=== PATIENT | female | born 1960 | race Hispanic/Latino ===

== ENCOUNTER 2019-02-16 08:35 | Emergency (ER) | payer OTHER ==
[2019-02-16 09:26] LABS: Basophils % 0.9 % (0-1.3); Hematocrit 39.7 % (36.0-45.0); Lymphocytes % 38.6 % (15.3-44.8); MPV 8.1 fL (7.6-11.3); RBC Red Blood Cell Count 4.26 M/uL (3.86-4.86)
[2019-02-16 09:48] LABS: Albumin 3.7 g/dL (3.4-5.0); Bilirubin Direct 0.1 mg/dL (0-0.2); Bilirubin Total 0.4 mg/dL (0.2-1.0); Potassium 3.8 mmol/L (3.5-5.1); Protein, Total 7.4 g/dL (6.4-8.2)
[2019-02-16 10:42] LABS: Urine Blood 2+ (NEG); Urine Glucose NEGATIVE (NEG); Urine Protein NEGATIVE (NEG); Urine pH 5.5 (5.0-7.0)
--- NOTE | 2019-02-16 10:46 | RAD REPORT ---
EXAM DESCRIPTION: CT - Stone Protocol - 02/16/2019 10:30 am CLINICAL HISTORY: Abdominal pain. Dysuria COMPARISON: 2016 TECHNIQUE: Computed axial tomography of the abdomen pelvis was obtained without oral or IV contrast. Lack of IV and oral contrast limits evaluation of solid organs, bowel, and vessels. Coronal reformat grecia images were obtained and reviewed. All CT scans are performed using dose optimization technique as appropriate and may include automated exposure control or mA/KV adjustment according to patient size. FINDINGS: 1 millimeter right renal calculus. No hydronephrosis. A left renal calculus is not seen. An ureteral calculus is not noted. A bladder calculus is not present. Fatty liver. The patient's known in a low-density mass within the dome of the liver is not as well se en on the current exam so the exact size is difficult to determine. Nonemergent ultrasound would be h elpful for further evaluation Spleen, pancreas and adrenals appear grossly normal There is no evidence of diverticulitis. The appendix appears normal 2 centimeter right ovarian cyst/paraovarian cyst without significant change since the prior exam IMPRESSION: 1 millimeter nonobstructing right renal calculus
--- NOTE | 2019-02-16 11:20 | ER ---
Nurse's Notes [facility] Name: Radha Guzman Age: 58 yrs Sex: Female : 1960 Arrival Date: 02/16/2019 Time: 08:39 Bed 20 Private MD: Sanjeev Luther Diagnosis: Dysuria Presentation: 02/16 08:44 Presenting complaint: Low back pain, suprapubic pain, and burning with urination x 2 hb days. Denies fever. Transition of care: patient was not received from another setting of care. Onset of symptoms was February 15, 2019. Risk Assessment: Do you want to hurt yourself or someone else? Patient reports no desire to harm self or others. Initial Sepsis Screen: Does the patient meet any 2 criteria? No. Patient's initial sepsis screen is negative. Care prior to arrival: None. 08:44 Method Of Arrival: Ambulatory hb 08:44 Acuity: RICKY 3 hb 10:00 Initial Sepsis Screen: Does the patient have a suspected source of infection? No. ca1 Patient's initial sepsis screen is negative. Triage Assessment: 08:46 General: Appears in no apparent distress. Behavior is calm, cooperative. Pain: Pain hb currently is 8 out of 10 on a pain scale. EENT: No signs and/or symptoms were reported regarding the EENT system. Neuro: Level of Consciousness is awake, alert, obeys commands, Oriented to person, place, time, situation. Cardiovascular: Capillary refill < 3 seconds Patient's skin is warm and dry. Respiratory: Airway is patent Respiratory effort is even, unlabored, Respiratory pattern is regular, symmetrical. GI: No signs and/or symptoms were reported involving the gastrointestinal system. : Reports burning with urination, suprapubic pain. Derm: Skin is pink, warm \T\ dry. Musculoskeletal: Circulation, motion, and sensation intact. Historical: - Allergies: 08:46 No Known Allergies; hb - Home Meds: 08:46 levothyroxine oral [Active]; Klonopin Oral [Active]; montelukast oral oral [Active]; hb - PMHx: 08:46 Depression; GERD; Hypothyroidism; hb - PSHx: 08:46 ; hb - Immunization history:: Adult Immunizations up to date. - Social history:: Smoking status: Patient/guardian denies using tobacco. - Ebola Screening: : No symptoms or risks identified at this time. Screenin:02 Abuse screen: Denies threats or abuse. Denies injuries from another. Nutritional ca1 screening: No deficits noted. Tuberculosis screening: No symptoms or risk factors identified. Fall Risk Assessment: 10:02 General: Appears in no apparent distress. comfortable, Behavior is calm, cooperative, ca1 appropriate for age. Pain: Complains of pain in low back area Pain currently is 8 out of 10 on a pain scale. Pain began 2-3 days ago. Neuro: Level of Consciousness is awake, alert, obeys commands, Oriented to person, place, time, situation. Cardiovascular: Heart tones S1 S2 present Capillary refill < 3 seconds Patient's skin is warm and dry. Respiratory: Airway is patent Respiratory effort is even, unlabored, Respiratory pattern is regular, symmetrical, Breath sounds are clear bilaterally. GI: Abdomen is round non-distended, Bowel sounds present X 4 quads. Abd is soft X 4 quads Abdomen is tender to palpation in suprapubic area. : No deficits noted. No signs and/or symptoms were reported regarding the genitourinary system. EENT: No deficits noted. No signs and/or symptoms were reported regarding the EENT system. Derm: Skin is intact, is healthy with good turgor, Skin is pink, warm \T\ dry. Musculoskeletal: Circulation, motion, and sensation intact. Capillary refill < 3 seconds, Range of motion: intact in all extremities. 11:30 Reassessment: Patient appears in no apparent distress at this time. Patient and/or ca1 family updated on plan of care and expected duration. Pain level reassessed. Patient is alert, oriented x 3, equal unlabored respirations, skin warm/dry/pink. Vital Signs: 08:46 BP 152 / 96; Pulse 63; Resp 16; Temp 97.3; Pulse Ox 100% on R/A; Weight 74.39 kg; hb Height 5 ft. 4 in. (162.56 cm); Pain 8/10; 10:22 BP 123 / 77; Pulse 61; Resp 17 S; Pulse Ox 98% on R/A; ca1 11:30 BP 122 / 90; Pulse 64; Resp 17 S; Pulse Ox 100% on R/A; ca1 08:46 Body Mass Index 28.15 (74.39 kg, 162.56 cm) hb ED Course: 08:39 Patient arrived in ED. mr 08:40 Sanjeev Luther MD is Private Physician. mr 08:42 Demond Mcknight PA is PHCP. [facility] 08:42 Rehan Whitaker MD is Attending Physician. [facility] 08:43 Sofia Roth, RN is Primary Nurse. hb 08:44 Triage completed. hb 08:46 Arm band placed on. hb 09:30 Inserted saline lock: 20 gauge in right antecubital area, using aseptic technique. ca1 ,using aseptic technique. by BRAEDEN Black Blood collected. 09:30 Initial lab(s) drawn, by ED staff, sent to lab. ca1 10:02 Patient has correct armband on for positive identification. Placed in gown. Bed in low ca1 position. Call light in reach. Side rails up X 1. Pulse ox on. NIBP on. Warm blanket given. 10:02 No provider procedures requiring assistance completed. ca1 11:19 Sanjeev Luther MD is Referral Physician. [facility] 12:04 IV discontinued, intact, bleeding controlled, No redness/swelling at site. Pressure ca1 dressing applied. Administered Medications: No medications were administered Outcome: 11:19 Discharge ordered by MD. [facility] 12:04 Discharged to home ambulatory, with significant other. ca1 12:04 Condition: stable 12:04 Discharge instructions given to patient, Instructed on discharge instructions, follow up and referral plans. no drinking with medication, no driving heavy equipment, medication usage, Demonstrated understanding of instructions, follow-up care, medications, Prescriptions given X 2. 12:05 Patient left the ED. ca1 Signatures: Demond Mcknight PA PA [facility] Graciela Jefferson mr Sofia Roth, RN RN Shy Mattson RN RN ca1
--- NOTE | 2019-02-16 11:20 | EDPHYS ---
Physician Documentation [facility] Name: Radha Guzman Age: 58 yrs Sex: Female : 1960 Arrival Date: 02/16/2019 Time: 08:39 Bed 20 Private MD: Sanjeev Luther ED Physician Rehan Whitaker HPI: 02/16 09:05 This 58 yrs old Female presents to ER via Ambulatory with complaints of Back jmm Pain. 09:05 The patient presents with pain that is acute. Onset: The symptoms/episode jmm began/occurred gradually, 1 day(s) ago. Associated signs and symptoms: Pertinent negatives: abdominal pain, fever, vomiting. Modifying factors: The patient symptoms are alleviated by nothing, the patient symptoms are aggravated by nothing. The patient has experienced similar episodes in the past. This is a 58 year old female with a history of hypothyroidism that presents to the ED with complaints of bilateral lower back pain which radiates to the pelvis bilaterally. Denies fever or vomiting. Admits to dysuria and increased frequency. . Historical: - Allergies: 08:46 No Known Allergies; hb - Home Meds: 08:46 levothyroxine oral [Active]; Klonopin Oral [Active]; montelukast oral oral [Active]; hb - PMHx: 08:46 Depression; GERD; Hypothyroidism; hb - PSHx: 08:46 ; hb - Immunization history:: Adult Immunizations up to date. - Social history:: Smoking status: Patient/guardian denies using tobacco. - Ebola Screening: : No symptoms or risks identified at this time. ROS: 09:05 Constitutional: Negative for fever, chills, and weight loss, Cardiovascular: Negative jmm for chest pain, palpitations, and edema, Respiratory: Negative for shortness of breath, cough, wheezing, and pleuritic chest pain. 09:05 : Positive for urinary symptoms. 09:05 All other systems are negative. Exam: 09:05 Constitutional: This is a well developed, well nourished patient who is awake, alert, jmm and in no acute distress. Head/Face: atraumatic. Eyes: EOMI, no conjunctival erythema appreciated ENT: Moist Mucus Membranes Neck: Trachea midline, Supple Chest/axilla: Normal chest wall appearance and motion. Cardiovascular: Regular rate and rhythm. No edema appreciated Respiratory: Normal respirations, no respiratory distress appreciated Abdomen/GI: Non distended, soft Back: Normal ROM MS/ Extremity: Moves all extremities, no obvious deformities appreciated, no edema noted to the lower extremities 09:05 Abdomen/GI: Inspection: abdomen appears normal, Palpation: abdomen is soft and non-tender, in all quadrants. 09:05 Neuro: Orientation: is normal, Mentation: is normal, Memory: is normal. 09:05 Psych: Behavior/mood is pleasant, cooperative. Vital Signs: 08:46 BP 152 / 96; Pulse 63; Resp 16; Temp 97.3; Pulse Ox 100% on R/A; Weight 74.39 kg; hb Height 5 ft. 4 in. (162.56 cm); Pain 8/10; 10:22 BP 123 / 77; Pulse 61; Resp 17 S; Pulse Ox 98% on R/A; ca1 11:30 BP 122 / 90; Pulse 64; Resp 17 S; Pulse Ox 100% on R/A; ca1 08:46 Body Mass Index 28.15 (74.39 kg, 162.56 cm) hb MDM: 09:02 Patient medically screened. [facility] 11:17 Data reviewed: vital signs, nurses notes. Counseling: I had a detailed discussion with [place] the patient and/or guardian regarding: the historical points, exam findings, and any diagnostic results supporting the discharge/admit diagnosis, lab results, radiology results, the need for outpatient follow up, to return to the emergency department if symptoms worsen or persist or if there are any questions or concerns that arise at home. ED course: Patient is alert and non toxic in appearance in the ED. CT negative for acute findings. Labs WNL. Patient will be treated for dysuria. Advised to follow up with pcp and otherwise given strict return precautions. Patient understood and agrees with the plan of care. . 02/16 09:03 Order name: Basic Metabolic Panel [facility] 02/16 09:03 Order name: CBC with Diff [facility] 02/16 09:03 Order name: Creatinine for Radiology [facility] 02/16 09:03 Order name: Hepatic Function [facility] 02/16 09:03 Order name: Lipase [facility] 02/16 09:03 Order name: Urine Culture [facility] 02/16 09:28 Order name: Urine Dipstick--Ancillary (enter results) 02/16 09:29 Order name: CBC with Automated Diff; Complete Time: 09:48 [facility] 02/16 09:46 Order name: Creatinine (Radiology Only); Complete Time: 09:48 [facility] 02/16 09:48 Order name: Basic Metabolic Panel; Complete Time: 10:02 [facility] 02/16 09:48 Order name: Liver (Hepatic) Function; Complete Time: 10:02 [facility] 02/16 09:48 Order name: Lipase; Complete Time: 10:02 [facility] 02/16 10:03 Order name: CT Stone Protocol [facility] 02/16 10:43 Order name: Urine Dipstick-Ancillary; Complete Time: 10:48 [facility] 02/16 09:03 Order name: IV Saline Lock; Complete Time: 09:23 [facility] 02/16 09:03 Order name: Labs collected and sent; Complete Time: 09:23 [facility] 02/16 09:03 Order name: Urine Dipstick-Ancillary (obtain specimen); Complete Time: 09:23 [facility] 02/16 11:12 Order name: CT; Complete Time: 11:16 EDSD Administered Medications: No medications were administered Disposition: 17:26 Co-signature as Attending Physician, Rehan Whitaker MD. ma2 Disposition: 02/16/19 11:19 Discharged to Home. Impression: Dysuria. - Condition is Stable. - Discharge Instructions: Dysuria. - Prescriptions for Cephalexin 500 mg Oral Capsule - take 1 capsule by ORAL route every 12 hours for 10 days; 20 capsule. Ultracet 37.5- 325 mg Oral Tablet - take 1 tablet by ORAL route every 6 hours - for up to 5 days; do not exceed 8 tablets per day.; 12 tablet. - Medication Reconciliation Form, Thank You Letter, Antibiotic Education, Prescription Opioid Use form. - Follow up: Sanjeev Luther MD; When: 2 - 3 days; Reason: Recheck today's complaints, Continuance of care, Re-evaluation by your physician. Signatures: Dispatcher [employer] [facility] Demond Mcknight PA PA jmm Baxter, Heather, RN RN hb Alzahri, Mohammad, MD MD ma2 Shy Mattson RN RN ca1 Corrections: (The following items were deleted from the chart) 12:05 11:19 02/16/2019 11:19 Discharged to Home. Impression: Dysuria. Condition is Stable. ca1 Forms are Medication Reconciliation Form, Thank You Letter, Antibiotic Education, Prescription Opioid Use. Follow up: Sanjeev Luther; When: 2 - 3 days; Reason: Recheck today's complaints, Continuance of care, Re-evaluation by your physician. daniel
[2019-02-16 12:14] VITALS: TEMP 97.3
[2019-02-16 12:18] VITALS: BP 122/90; O2SAT 100
== END 2019-02-16 12:05 | disposition home or self-care (01) ==
LOC: ER 08:35
DX: R30.0 Dysuria (principal); E03.9 Hypothyroidism, unspecified; F32.9 Major depressive disorder, single episode, unspecified
CPT/HCPCS: 36415; 74176; 76377; 80048; 80076; 81003; 83690; 85025; 87086; 87088; 99284

== ENCOUNTER 2019-05-21 09:11 | Emergency (ER) | payer OTHER ==
[2019-05-21] MEDS ORDERED: ONDANSETRON 4 MG (ODT) TAB ONE (09:53)
--- NOTE | 2019-05-21 10:31 | ER ---
Nurse's Notes [facility] Name: Radha Guzmna Age: 59 yrs Sex: Female : 1960 Arrival Date: 05/21/2019 Time: 09:18 Bed 6 Private MD: Diagnosis: Allergic rhinitis, unspecified Presentation: 05/20 09:44 Chief complaint: Patient states: headache, productive cough, nausea, urinary frequency sv x 1 week, seasonal allergies x 3 weeks. Coronavirus screen: The patient has NOT traveled to a country currently being monitored by the [facility] within the last 14 days. Proceed with normal triage procedures. The patient has NOT had contact with any known and/or suspected case of coronavirus. Proceed with normal triage procedures. Ebola Screen: Patient negative for fever greater than or equal to 101.5 degrees Fahrenheit, and additional compatible Ebola Virus Disease symptoms Patient denies exposure to infectious person. Patient denies travel to an Ebola-affected area in the 21 days before illness onset. No symptoms or risks identified at this time. Initial Sepsis Screen: Does the patient meet any 2 criteria? No. Patient's initial sepsis screen is negative. Does the patient have a suspected source of infection? Yes: Productive cough/pneumonia. Risk Assessment: Do you want to hurt yourself or someone else? Patient reports no desire to harm self or others. 09:44 Method Of Arrival: Ambulatory sv 09:44 Acuity: RICKY 4 sv Triage Assessment: 09:45 General: Appears in no apparent distress. comfortable, well developed, Behavior is sv calm, cooperative, appropriate for age. Pain: Complains of pain in face. Neuro: Level of Consciousness is awake, alert, obeys commands, Oriented to person, place, time, situation, Moves all extremities. Full function Gait is steady, Reports headache frontal area. Respiratory: Airway is patent Respiratory effort is even, unlabored, Respiratory pattern is regular, symmetrical. GI: Abdomen is flat, non-distended, Abd is soft and non tender X 4 quads. Reports nausea. : Reports urinary frequency. Derm: Skin is pink, warm \T\ dry. Musculoskeletal: Range of motion: intact in all extremities. Historical: - Allergies: 09:46 No Known Allergies; sv - PMHx: 09:46 Depression; GERD; Hypothyroidism; sv - PSHx: 09:46 ; sv - Immunization history:: Adult Immunizations up to date. - Social history:: Smoking status: Patient denies any tobacco usage or history of. Screenin:59 Abuse screen: Denies threats or abuse. Denies injuries from another. Nutritional jl7 screening: No deficits noted. Tuberculosis screening: No symptoms or risk factors identified. Fall Risk None identified. Assessment: 11:00 Reassessment: Patient appears in no apparent distress at this time. No changes from sv previously documented assessment. Patient and/or family updated on plan of care and expected duration. Pain level reassessed. Patient is alert, oriented x 3, equal unlabored respirations, skin warm/dry/pink. Vital Signs: 09:44 BP 169 / 97; Pulse 69; Resp 16; Temp 98.3; Pulse Ox 99% ; Weight 67.13 kg; Height 5 ft. sv 5 in. (165.10 cm); 10:56 BP 118 / 90; Pulse 62; Resp 16; Pulse Ox 99% ; sv 09:44 Body Mass Index 24.63 (67.13 kg, 165.10 cm) sv ED Course: 09:18 Patient arrived in ED. mr 09:39 Romina Iverson, SADIA [facility]. kb 09:39 Octaviano Sparks MD is Attending Physician. kb 09:40 Lisha Mosher RN is Primary Nurse. sv 09:45 Triage completed. sv 09:46 Nurse Practitioner and/or Physician Customer Service Manager to see patient. sv 09:46 Arm band placed on Patient placed in an exam room, on a stretcher. sv 09:51 Strep Sent. sv 10:00 Patient has correct armband on for positive identification. Bed in low position. Call jl7 light in reach. Side rails up X 1. 11:00 No provider procedures requiring assistance completed. Patient did not have IV access jl7 during this emergency room visit. Administered Medications: 09:51 Drug: Zofran (Ondansetron) 4 mg Route: PO; sv 10:59 Follow up: Response: No adverse reaction; Nausea is decreased jl7 Outcome: 10:30 Discharge ordered by . kb 11:00 Discharged to home ambulatory. jl7 11:00 Condition: stable 11:00 Discharge instructions given to patient, family, Instructed on discharge instructions, follow up and referral plans. medication usage, Demonstrated understanding of instructions, follow-up care, medications, Prescriptions given X 1. 11:00 Patient left the ED. jl7 Signatures: Romina Iverson, SADIA BEARD-Lisha Cardenas, RN BRAEDEN Jefferson Graciela Enma Young RN RN jl7
--- NOTE | 2019-05-21 10:32 | EDPHYS ---
Physician Documentation [facility] Name: Radha Guzman Age: 59 yrs Sex: Female : 1960 Arrival Date: 05/21/2019 Time: 09:18 Bed 6 Private MD: ED Physician Octaviano Sparks HPI: 05/20 09:50 This 59 yrs old Female presents to ER via Ambulatory with complaints of kb Nausea, Allergy Symptoms. 09:50 The patient or guardian reports cough, that is intermittent, described as mild, with no kb sputum. Onset: The symptoms/episode began/occurred 3 week(s) ago. Severity of symptoms: At their worst the symptoms were mild, in the emergency department the symptoms are unchanged. Modifying factors: The symptoms are alleviated by nothing, the symptoms are aggravated by nothing. Associated signs and symptoms: Pertinent positives: nausea, rhinorrhea, sore throat, Pertinent negatives: chest pain, diarrhea, ear ache, fever, vomiting. The patient has not experienced similar symptoms in the past. The patient has not recently seen a physician. Pt reports "bad allergies for 3 weeks." States recently she developed a scratchy throat and slight cough. Reports headache and nausea for one week. Denies fever. Requests antibiotics for her throat. Educated that we will test for strep and treat appropriately. Historical: - Allergies: 09:46 No Known Allergies; sv - PMHx: 09:46 Depression; GERD; Hypothyroidism; sv - PSHx: 09:46 ; sv - Immunization history:: Adult Immunizations up to date. - Social history:: Smoking status: Patient denies any tobacco usage or history of. ROS: 09:49 Constitutional: Negative for fever, chills, and weight loss, Neck: Negative for injury, kb pain, and swelling, Cardiovascular: Negative for chest pain, palpitations, and edema, Back: Negative for injury and pain, : Negative for injury, bleeding, discharge, and swelling, MS/Extremity: Negative for injury and deformity, Skin: Negative for injury, rash, and discoloration. 09:49 ENT: Positive for rhinorrhea, sinus congestion, sore throat. 09:49 Respiratory: Positive for cough, Negative for dyspnea on exertion, hemoptysis, orthopnea, pleurisy, shortness of breath, sputum production, wheezing. 09:49 Abdomen/GI: Positive for nausea, Negative for abdominal pain, vomiting, diarrhea. 09:49 Neuro: Positive for headache, Negative for altered mental status, dizziness, gait disturbance, hearing loss, loss of consciousness, numbness, seizure activity, speech changes, syncope, near syncope, tingling, tinnitus, tremor, visual changes, weakness. Exam: 09:49 Constitutional: This is a well developed, well nourished patient who is awake, alert, kb and in no acute distress. Head/Face: Normocephalic, atraumatic. Neck: Trachea midline, no thyromegaly or masses palpated, and no cervical lymphadenopathy. Supple, full range of motion without nuchal rigidity, or vertebral point tenderness. No Meningismus. Chest/axilla: Normal chest wall appearance and motion. Nontender with no deformity. No lesions are appreciated. Cardiovascular: Regular rate and rhythm with a normal S1 and S2. No gallops, murmurs, or rubs. Normal PMI, no JVD. No pulse deficits. Respiratory: Lungs have equal breath sounds bilaterally, clear to auscultation and percussion. No rales, rhonchi or wheezes noted. No increased work of breathing, no retractions or nasal flaring. Abdomen/GI: Soft, non-tender, with normal bowel sounds. No distension or tympany. No guarding or rebound. No evidence of tenderness throughout. Skin: Warm, dry with normal turgor. Normal color with no rashes, no lesions, and no evidence of cellulitis. MS/ Extremity: Pulses equal, no cyanosis. Neurovascular intact. Full, normal range of motion. Neuro: Awake and alert, GCS 15, oriented to person, place, time, and situation. Cranial nerves II-XII grossly intact. Motor strength 5/5 in all extremities. Sensory grossly intact. Cerebellar exam normal. Normal gait. 09:49 ENT: Nose: is normal, Mouth: is normal, Posterior pharynx: Airway: normal, no evidence of obstruction, swelling, is not appreciated, erythema, that is mild. Vital Signs: 09:44 BP 169 / 97; Pulse 69; Resp 16; Temp 98.3; Pulse Ox 99% ; Weight 67.13 kg; Height 5 ft. sv 5 in. (165.10 cm); 10:56 BP 118 / 90; Pulse 62; Resp 16; Pulse Ox 99% ; sv 09:44 Body Mass Index 24.63 (67.13 kg, 165.10 cm) sv MDM: 09:39 Patient medically screened. kb 09:50 Data reviewed: vital signs, nurses notes. Data interpreted: Pulse oximetry: on room air kb is 99 %. Interpretation: normal. 10:30 Counseling: I had a detailed discussion with the patient and/or guardian regarding: the kb historical points, exam findings, and any diagnostic results supporting the discharge/admit diagnosis, lab results, the need for outpatient follow up, a family practitioner, to return to the emergency department if symptoms worsen or persist or if there are any questions or concerns that arise at home. 05/20 09:46 Order name: Strep; Complete Time: 10:29 sv 05/20 10:22 Order name: Throat Culture EDUT Administered Medications: 09:51 Drug: Zofran (Ondansetron) 4 mg Route: PO; sv 10:59 Follow up: Response: No adverse reaction; Nausea is decreased alla7 Disposition: 18:24 Co-signature as Attending Physician, Octaviano Sparks MD Signature for administrative ps1 purposes. Did not see or evaluate patient. . Disposition: 05/21/19 10:30 Discharged to Home. Impression: Allergic rhinitis, unspecified. - Condition is Stable. - Discharge Instructions: Cough, Adult, [id number]-[id number], Sore Throat, [id number], Allergies, [id number]. - Prescriptions for Zofran 4 mg Oral Tablet - take 1 tablet by ORAL route every 6 hours As needed; 20 tablet. - Medication Reconciliation Form, Thank You Letter, Antibiotic Education, Prescription Opioid Use form. - Follow up: Emergency Department; When: As needed; Reason: Worsening of condition. Follow up: Private Physician; When: 2 - 3 days; Reason: Recheck today's complaints, Continuance of care, Re-evaluation by your physician. Signatures: Dispatcher [employer] EDUT Romina Iverson FNP-C FNP-Ckb Verde, Stephanie, RN RN Enma Gallagher RN RN Octaviano Beasley MD MD ps1 Corrections: (The following items were deleted from the chart) 11:00 10:30 05/21/2019 10:30 Discharged to Home. Impression: Allergic rhinitis, unspecified. jl7 Condition is Stable. Forms are Medication Reconciliation Form, Thank You Letter, Antibiotic Education, Prescription Opioid Use. Follow up: Emergency Department; When: As needed; Reason: Worsening of condition. Follow up: Private Physician; When: 2 - 3 days; Reason: Recheck today's complaints, Continuance of care, Re-evaluation by your physician. kb
[2019-05-21 11:07] VITALS: TEMP 98.3; O2SAT 99
[2019-05-21 11:08] VITALS: BP 118/90
== END 2019-05-21 11:00 | disposition home or self-care (01) ==
LOC: ER 09:11
DX: J30.9 Allergic rhinitis, unspecified (principal); R11.0 Nausea
CPT/HCPCS: 87070; 87081; 99283

== ENCOUNTER 2019-08-24 09:53 | Emergency (ER) | payer OTHER ==
[2019-08-24] MEDS ORDERED: KETOROLAC 30 MG/ML INJ ONE (11:03)
[2019-08-24] MEDS ORDERED: NA CHLORIDE 0.9% 1,000 ML ONE (11:03)
[2019-08-24] MEDS ORDERED: MORPHINE 4 MG/ML SYR ONE (11:03)
[2019-08-24] MEDS ORDERED: ONDANSETRON 4 MG/2 ML VIAL ONE (11:03)
[2019-08-24 11:07] LABS: Urine Blood 2+ (NEG); Urine Glucose NEGATIVE (NEG); Urine Protein NEGATIVE (NEG); Urine pH 7.5 (5.0-7.0)
[2019-08-24] MEDS ORDERED: AZITHROMYCIN IV 500 MG in NA CHLORIDE 0.9% 250 ML IVPB ONE (11:15)
[2019-08-24 11:36] LABS: Absolute Lymphocytes (CBC) 1.8 K/uL (0.7-4.9); Hematocrit 43.6 % (36.0-45.0); Lymphocytes % 34.3 % (15.3-44.8); MPV 8.4 fL (7.6-11.3); RBC Red Blood Cell Count 4.68 M/uL (3.86-4.86)
--- NOTE | 2019-08-24 11:39 | RAD REPORT ---
EXAM DESCRIPTION: Astrid Single View08/24/2019 11:28 am CLINICAL HISTORY: Congestion COMPARISON: 2007 FINDINGS: The lungs appear clear of acute infiltrate. The heart is normal size IMPRESSION: No acute abnormalities displayed
[2019-08-24 11:53] LABS: Bilirubin Direct 0.1 mg/dL (0-0.2); Bilirubin Total 0.5 mg/dL (0.2-1.0); Potassium 4.2 mmol/L (3.5-5.1); Protein, Total 8.1 g/dL (6.4-8.2)
[2019-08-24] MEDS ORDERED: CEFTRIAXONE/SWI 1gm 1 GM/10 ML SYR ONE (12:10)
--- NOTE | 2019-08-24 12:18 | ER ---
Nurse's Notes [facility] Name: Radha Guzman Age: 59 yrs Sex: Female : 1960 Arrival Date: 08/24/2019 Time: 09:58 Bed 15 Private MD: Diagnosis: Cystitis, unspecified without hematuria Presentation: 08/23 10:04 Chief complaint: Parent and/or Guardian states: "She has allergies, she's having them ca1 periodically and she doesn't have PCP right now". Reports headache, nasal congestion, and headache. Reports slight night but unable to take temp. Denies N/V. Denies SOB. Coronavirus screen: Proceed with normal triage. Patient denies a cough. Patient denies shortness of breath or difficulty breathing. Patient reports a measured and/or subjective temperature greater than 100.4F. Patient denies travel on a cruise ship or to a country the [facility] currently lists as an affected area. Patient denies contact with known and/or suspected case of COVID-19. Ebola Screen: Patient negative for fever greater than or equal to 101.5 degrees Fahrenheit, and additional compatible Ebola Virus Disease symptoms Patient denies exposure to infectious person. Patient denies travel to an Ebola-affected area in the 21 days before illness onset. No symptoms or risks identified at this time. Initial Sepsis Screen: Does the patient meet any 2 criteria? No. Patient's initial sepsis screen is negative. Does the patient have a suspected source of infection? No. Patient's initial sepsis screen is negative. Risk Assessment: Do you want to hurt yourself or someone else? Patient reports no desire to harm self or others. Onset of symptoms was August 24, 2019. 10:04 Method Of Arrival: Ambulatory ca1 10:04 Acuity: RICKY 4 ca1 11:00 Acuity: RICKY 3 jl7 Triage Assessment: 13:00 Headache History: The patient has had previous headaches and this one is similar to iw previous episodes. 13:06 Pain: Also complains of no other associated symptoms. iw Historical: - Allergies: 10:09 No Known Allergies; ca1 - Home Meds: 10:09 Klonopin Oral [Active]; levothyroxine oral [Active]; ca1 - PMHx: 10:09 Depression; GERD; Hypothyroidism; ca1 - PSHx: 10:09 ; ca1 - Immunization history:: Adult Immunizations up to date. - Social history:: Smoking status: Patient denies any tobacco usage or history of. Patient/guardian denies using alcohol, street drugs, The patient lives with family. - Family history:: not pertinent. Screenin:42 Abuse screen: Denies threats or abuse. Denies injuries from another. Nutritional jl7 screening: No deficits noted. Tuberculosis screening: No symptoms or risk factors identified. Fall Risk IV access (20 points). Total Harris Fall Scale indicates No Risk (0-24 pts). Assessment: 11:00 General: Appears in no apparent distress. uncomfortable, ill, Behavior is calm, jl7 cooperative, appropriate for age. Pain: Complains of pain in [place] Pain does not radiate. Pain currently is 6 out of 10 on a pain scale. Quality of pain is described as throbbing, Pain began 1 day ago. Is continuous. Neuro: Level of Consciousness is awake, alert, obeys commands, Oriented to person, place, time, situation. Cardiovascular: Patient's skin is warm and dry. Respiratory: Airway is patent Respiratory effort is even, unlabored, Respiratory pattern is regular, symmetrical. GI: Patient currently denies diarrhea, nausea, vomiting. EENT: Reports nasal congestion. Derm: Skin is pink, warm \\T\\ dry. 12:08 Reassessment: Patient appears in no apparent distress at this time. Patient and/or iw family updated on plan of care and expected duration. Pain level reassessed. Patient is alert, oriented x 3, equal unlabored respirations, skin warm/dry/pink. Patient states feeling better. Vital Signs: 10:04 BP 156 / 84; Pulse 67; Resp 18 S; Temp 97.6(TE); Pulse Ox 100% on R/A; Weight 65.77 kg ca1 (R); Height 5 ft. 5 in. (165.10 cm) (R); Pain 5/10; 11:43 BP 154 / 88; Pulse 68; Resp 16; Pulse Ox 100% ; Pain 6/10; jl7 10:04 Body Mass Index 24.13 (65.77 kg, 165.10 cm) ca1 ED Course: 09:58 Patient arrived in ED. ag5 10:09 Triage completed. ca1 10:09 Arm band placed on right wrist. ca1 10:13 Enma Rucker RN is Primary Nurse. jl7 10:14 Rehan Whitaker MD is Attending Physician. ma2 11:22 Initial lab(s) drawn, by me, sent to lab. Inserted saline lock: 20 gauge in right em1 antecubital area, using aseptic technique. Blood collected. 11:28 CXR XRAY In Process Unspecified. EDMS 11:39 Basic Metabolic Panel Sent. jl7 11:42 Patient has correct armband on for positive identification. Placed in gown. Bed in low jl7 position. Call light in reach. Side rails up X2. Pulse ox on. NIBP on. Warm blanket given. 11:42 Flu and/or RSV swab sent to lab. Strep swab sent to lab. COVID-19 swab sent to lab. jl7 13:06 No provider procedures requiring assistance completed. IV discontinued, intact, iw bleeding controlled, No redness/swelling at site. Pressure dressing applied. 13:07 Primary Nurse role handed off by Enma Rucker RN iw 13:07 lBaire Reyes RN is Primary Nurse. iw Administered Medications: 11:30 Drug: NS 0.9% 1000 ml Route: IV; Rate: 1 bolus; Site: right antecubital; jl7 11:32 Drug: Zofran (Ondansetron) 4 mg Route: IVP; Site: right antecubital; jl7 12:30 Follow up: Response: No adverse reaction iw 11:34 Drug: morphine 4 mg Route: IVP; Site: right antecubital; jl7 12:30 Follow up: Response: No adverse reaction; Pain is decreased iw 11:36 Drug: TORadol 30 mg Route: IVP; Site: right antecubital; jl7 13:00 Follow up: Response: No adverse reaction iw 11:38 Drug: AZITHromycin 500 mg Route: IVPB; Infused Over: 1 hrs; Site: right antecubital; jl7 12:07 Drug: Rocephin 1 grams Route: IV; Rate: calculated rate; Site: right antecubital; iw Outcome: 12:18 Discharge ordered by . ma2 13:06 Discharged to home ambulatory, with family. iw 13:06 Condition: good 13:06 Discharge instructions given to patient, family, Instructed on discharge instructions, follow up and referral plans. medication usage, Demonstrated understanding of instructions, follow-up care, medications, Prescriptions given X 7 13:07 Patient left the ED. iw Addendum: 08/26/2019 10:37 Addendum: Other Pt notified of negative COVID-19 swab results. Pt advised to remain in d m5 isolation until fever free for 3 days without medicaiton. Signatures: Dispatcher [employer] EDVanessa Martinez RN RN dm5 Blaire Reyes RN RN iw Martinez, Eric em1 Enma Rucker RN RN jl7 Rehan Whitaker MD MD ma2 Shy Mattson RN RN ca1 Hesham, Won 5
--- NOTE | 2019-08-24 12:19 | EDPHYS ---
Physician Documentation [facility] Name: Radha Guzman Age: 59 yrs Sex: Female : 1960 Arrival Date: 08/24/2019 Time: 09:58 Bed 15 Private MD: ED Physician Rehan Whitaker HPI: 08/23 12:15 This 59 yrs old Female presents to ER via Ambulatory with complaints of ma2 Headache, Fever, Allergy Symptoms. 12:15 The patient complains of pain to the forehead. The patient describes the headache as ma2 aching. Onset: The symptoms/episode began/occurred gradually, 2 week(s) ago. Associated signs and symptoms: Pertinent negatives: dizziness, malaise, neck stiffness, Photophobia vomiting, weakness. Severity of symptoms: At its worst the pain was mild, in the emergency department the pain is unchanged. The patient has not experienced similar symptoms in the past. has dysuria and frequency and mild chronic gradual headache that's not changed from baseline . Historical: - Allergies: 10:09 No Known Allergies; ca1 - Home Meds: 10:09 Klonopin Oral [Active]; levothyroxine oral [Active]; ca1 - PMHx: 10:09 Depression; GERD; Hypothyroidism; ca1 - PSHx: 10:09 ; ca1 - Immunization history:: Adult Immunizations up to date. - Social history:: Smoking status: Patient denies any tobacco usage or history of. Patient/guardian denies using alcohol, street drugs, The patient lives with family. - Family history:: not pertinent. ROS: 12:15 Constitutional: Negative for fever, chills, and weight loss. ma2 12:15 All other systems are negative. Exam: 12:15 Constitutional: This is a well developed, well nourished patient who is awake, alert, ma2 and in no acute distress. Head/Face: Normocephalic, atraumatic. Eyes: Pupils equal round and reactive to light, extra-ocular motions intact. Lids and lashes normal. Conjunctiva and sclera are non-icteric and not injected. Cornea within normal limits. Periorbital areas with no swelling, redness, or edema. ENT: Nares patent. No nasal discharge, no septal abnormalities noted. Tympanic membranes are normal and external auditory canals are clear. Oropharynx with no redness, swelling, or masses, exudates, or evidence of obstruction, uvula midline. Mucous membranes moist. Neck: Trachea midline, no thyromegaly or masses palpated, and no cervical lymphadenopathy. Supple, full range of motion without nuchal rigidity, or vertebral point tenderness. No Meningismus. Chest/axilla: Normal chest wall appearance and motion. Nontender with no deformity. No lesions are appreciated. Cardiovascular: Regular rate and rhythm with a normal S1 and S2. No gallops, murmurs, or rubs. Normal PMI, no JVD. No pulse deficits. Respiratory: Lungs have equal breath sounds bilaterally, clear to auscultation and percussion. No rales, rhonchi or wheezes noted. No increased work of breathing, no retractions or nasal flaring. Abdomen/GI: Soft, non-tender, with normal bowel sounds. No distension or tympany. No guarding or rebound. No evidence of tenderness throughout. Skin: Warm, dry with normal turgor. Normal color with no rashes, no lesions, and no evidence of cellulitis. MS/ Extremity: Pulses equal, no cyanosis. Neurovascular intact. Full, normal range of motion. Neuro: Awake and alert, GCS 15, oriented to person, place, time, and situation. Cranial nerves II-XII grossly intact. Motor strength 5/5 in all extremities. Sensory grossly intact. Cerebellar exam normal. Normal gait. Vital Signs: 10:04 BP 156 / 84; Pulse 67; Resp 18 S; Temp 97.6(TE); Pulse Ox 100% on R/A; Weight 65.77 kg ca1 (R); Height 5 ft. 5 in. (165.10 cm) (R); Pain 5/10; 11:43 BP 154 / 88; Pulse 68; Resp 16; Pulse Ox 100% ; Pain 6/10; jl7 10:04 Body Mass Index 24.13 (65.77 kg, 165.10 cm) ca1 MDM: 10:14 Patient medically screened. ma2 12:15 Differential diagnosis: cluster headache, migraine, sinusitis, uremia. Data reviewed: ma2 vital signs, nurses notes. Counseling: I had a detailed discussion with the patient and/or guardian regarding: the historical points, exam findings, and any diagnostic results supporting the discharge/admit diagnosis, the presence of at least one elevated blood pressure reading (>120/80) during this emergency department visit, the need for outpatient follow up. Response to treatment: the patient's symptoms have markedly improved after treatment. 08/23 10:45 Order name: Basic Metabolic Panel [facility] 08/23 10:45 Order name: CBC with Diff; Complete Time: 11:44 [facility] 08/23 10:45 Order name: Hepatic Function; Complete Time: 11:58 [facility] 08/23 10:45 Order name: Lipase; Complete Time: 11:58 [facility] 08/23 10:45 Order name: COVID-19 [facility] 08/23 10:45 Order name: Flu; Complete Time: 12:15 [facility] 08/23 10:45 Order name: CXR XRAY; Complete Time: 11:44 [facility] 08/23 10:45 Order name: Strep; Complete Time: 11:58 [facility] 08/23 10:46 Order name: Basic Metabolic Panel; Complete Time: 11:58 [facility] 08/23 11:01 Order name: Urine Dipstick--Ancillary (enter results); Complete Time: 11:44 [facility] 08/23 12:01 Order name: Throat Culture [facility] 08/23 10:45 Order name: IV Saline Lock; Complete Time: 11:21 [facility] 08/23 10:45 Order name: Labs collected and sent; Complete Time: 11:21 [facility] 08/23 10:45 Order name: Droplet/Contact Precautions; Complete Time: 10:49 [facility] 08/23 10:45 Order name: Labs collected and sent; Complete Time: 10:49 [facility] 08/23 10:45 Order name: O2 Per Protocol; Complete Time: 11:39 [facility] 08/23 10:45 Order name: Urine Dipstick-Ancillary (obtain specimen); Complete Time: 11:39 [facility] 08/23 10:49 Order name: IV Start; Complete Time: 10:49 jl7 Administered Medications: 11:30 Drug: NS 0.9% 1000 ml Route: IV; Rate: 1 bolus; Site: right antecubital; jl7 11:32 Drug: Zofran (Ondansetron) 4 mg Route: IVP; Site: right antecubital; jl7 12:30 Follow up: Response: No adverse reaction iw 11:34 Drug: morphine 4 mg Route: IVP; Site: right antecubital; jl7 12:30 Follow up: Response: No adverse reaction; Pain is decreased iw 11:36 Drug: TORadol 30 mg Route: IVP; Site: right antecubital; jl7 13:00 Follow up: Response: No adverse reaction iw 11:38 Drug: AZITHromycin 500 mg Route: IVPB; Infused Over: 1 hrs; Site: right antecubital; jl7 12:07 Drug: Rocephin 1 grams Route: IV; Rate: calculated rate; Site: right antecubital; iw Disposition: 08/24/19 12:18 Discharged to Home. Impression: Cystitis, unspecified without hematuria. - Condition is Stable. - Discharge Instructions: Urinary Tract Infection, Adult. - Prescriptions for Flonase Allergy Relief 50 mcg/actuation Nasal spray,suspension - inhale 1 spray by INTRANASAL route once daily; 1 box. clonazepam 0.5 mg Oral tablet - take 1 tablet by ORAL route 3 times per day; 20 tablet. montelukast 5 mg Oral tablet,chewable - chew 2 tablet by ORAL route once daily in the evening; 60 tablet. pantoprazole 20 mg Oral tablet,delayed release (DR/EC) - take 2 tablet by ORAL route once daily; 60 tablet. Atrovent 0.03 % Nasal Aerosol, [place] - inhale 2 spray by INTRANASAL route every 12 hours for 7 days; 1 bottle. Levothyroxine 25 mcg Oral Tablet - take 1 tablet by ORAL route once daily take 30 minutes before breakfast; 20 tablet. Fluticasone 0.05 % Topical Cream - apply 1 application by TOPICAL route once daily; 1 tube. Cipro 500 mg Oral Tablet - take 1 tablet by ORAL route every 12 hours for 7 days; 14 tablet. - Medication Reconciliation Form, Thank You Letter, Antibiotic Education, Prescription Opioid Use form. - Follow up: Private Physician; When: Tomorrow; Reason: Continuance of care. Signatures: Dispatcher [employer] Blaire Cloud RN RN iw Enma Rucker RN RN jl7 Rehan Whitaker MD MD ma2 Shy Mattson RN RN ca1 Corrections: (The following items were deleted from the chart) 13:07 12:18 08/24/2019 12:18 Discharged to Home. Impression: Cystitis, unspecified without iw hematuria. Condition is Stable. Prescriptions for Flonase Allergy Relief 50 mcg/actuation Nasal spray,suspension - inhale 1 spray by INTRANASAL route once daily; 1 box, clonazepam 0.5 mg Oral tablet - take 1 tablet by ORAL route 3 times per day; 20 tablet, montelukast 5 mg Oral tablet,chewable - chew 2 tablet by ORAL route once daily in the evening; 60 tablet, pantoprazole 20 mg Oral tablet,delayed release (DR/EC) - take 2 tablet by ORAL route once daily; 60 tablet, Atrovent 0.03 % Nasal Aerosol, [place] - inhale 2 spray by INTRANASAL route every 12 hours for 7 days; 1 bottle, Levothyroxine 25 mcg Oral Tablet - take 1 tablet by ORAL route once daily take 30 minutes before breakfast; 20 tablet, Fluticasone 0.05 % Topical Cream - apply 1 application by TOPICAL route once daily; 1 tube. and Forms are Medication Reconciliation Form, Thank You Letter, Antibiotic Education, Prescription Opioid Use. Follow up: Private Physician; When: Tomorrow; Reason: Continuance of care. ma2
[2019-08-24 13:14] VITALS: TEMP 97.6; O2SAT 100
[2019-08-24 13:16] VITALS: BP 154/88
== END 2019-08-24 13:07 | disposition home or self-care (01) ==
LOC: ER 09:53
DX: N30.90 Cystitis, unspecified without hematuria (principal); Z20.828 Contact with and (suspected) exposure to other viral communicable diseases; E03.9 Hypothyroidism, unspecified; F32.9 Major depressive disorder, single episode, unspecified
CPT/HCPCS: 87070; 85025; 80048; 36415; 80076; 87081; 81003; 83690; 87804 ×2; 71045; 96375; 96374; 99284; U0001; J0456; J0696; J7030 ×2; J2405

== ENCOUNTER 2019-09-07 00:26 | Emergency (ER) | payer OTHER ==
[2019-09-07 01:16] LABS: Urine Culture Reflex Order NOT NEEDED
[2019-09-07 01:17] LABS: Urine Bacteria <20 /HPF (<20); Urine RBC <5 /HPF (NONE SEEN); Urine Urothelial Cells <5 /HPF (NONE SEEN)
[2019-09-07 01:30] LABS: Absolute Lymphocytes (CBC) 2.6 K/uL (0.7-4.9); Basophils % 0.8 % (0-1.3); Lymphocytes % 37.6 % (15.3-44.8); MPV 8.6 fL (7.6-11.3); RBC Red Blood Cell Count 4.21 M/uL (3.86-4.86)
[2019-09-07 01:46] LABS: ALT/SGPT 27 U/L (12-78); AST/SGOT 19 U/L (15-37); Albumin 3.9 g/dL (3.4-5.0); Alkaline Phosphatase 97 U/L (45-117); BUN Blood Urea Nitrogen 12 mg/dL (7-18); Bicarbonate 28 mmol/L (21-32); Bilirubin Direct < 0.1 mg/dL (0-0.2); Bilirubin Total 0.5 mg/dL (0.2-1.0); Glucose Level 97 mg/dL (74-106); Lipase 150 U/L (73-393); Protein, Total 7.8 g/dL (6.4-8.2); Sodium Level 142 mmol/L (136-145)
--- NOTE | 2019-09-07 02:13 | EDPHYS ---
Physician Documentation [facility] Name: Radha Guzman Age: 59 yrs Sex: Female : 1960 Arrival Date: 09/07/2019 Time: 00:29 Bed 17 Private MD: ED Physician Aj Rossi HPI: 09/06 01:01 This 59 yrs old Female presents to ER via Ambulatory with complaints of Back rn Pain. 01:01 The patient presents with pain that is acute, with no known mechanism of injury. The rn symptoms are located in the low back. Onset: The symptoms/episode began/occurred. 01:01 Onset: The symptoms/episode began/occurred at an unknown time. The pain does not rn radiate. Modifying factors: The patient symptoms are alleviated by nothing, the patient symptoms are aggravated by nothing. Severity of symptoms: At their worst the symptoms were mild, in the emergency department the symptoms are unchanged. The patient has experienced similar episodes in the past. The patient has been recently seen at the [facility] Emergency Department. Reports seen here recently for same symptoms of lower abd pain, malaise, anxiety, told had UTI, took medication, does not feel better. Has had kidney stones in past, denies hematuria, but now having bilateral lower back pain without injury. No fever/vomiting/diarrhea. Reports suprapubic pain.. Historical: - Allergies: 00:43 No Known Allergies; ss - PMHx: 00:43 Depression; GERD; Hypothyroidism; ss - PSHx: 00:43 ; ss - Immunization history:: Adult Immunizations up to date. - Social history:: Smoking status: Patient denies any tobacco usage or history of. - Family history:: not pertinent. - Hospitalizations: : No recent hospitalization is reported. ROS: 01:01 Constitutional: Negative for fever, chills, and weight loss, Eyes: Negative for injury, rn pain, redness, and discharge, Cardiovascular: Negative for chest pain, palpitations, and edema, Respiratory: Negative for shortness of breath, cough, wheezing, and pleuritic chest pain, Abdomen/GI: Negative for nausea, vomiting, diarrhea, and constipation, Back: + lower back pain : Negative for injury, bleeding, discharge, and swelling, MS/Extremity: Negative for injury and deformity, Skin: Negative for injury, rash, and discoloration, Neuro: Negative for weakness, numbness, tingling, and seizure. Exam: 01:01 Constitutional: This is a well developed, well nourished patient who is awake, alert, rn and in no acute distress. Ambulatory to room without difficulty. Cardiovascular: Regular rate and rhythm. No pulse deficits. Respiratory: No increased work of breathing, no retractions or nasal flaring. Abdomen/GI: soft, mild suprapubic tenderness Back: No spinal tenderness. No costovertebral tenderness. Full range of motion. Skin: Warm, dry with normal turgor. Normal color with no rashes, no lesions, and no evidence of cellulitis. MS/ Extremity: Pulses equal, no cyanosis. Neurovascular intact. Full, normal range of motion. Equal circumference. Neuro: Awake and alert, GCS 15, oriented to person, place, time, and situation. Cranial nerves II-XII grossly intact. Motor strength 5/5 in all extremities. Sensory grossly intact. Cerebellar exam normal. Normal gait. Vital Signs: 00:50 BP 134 / 88; Pulse 72; Resp 15; Temp 98.3(TE); Pulse Ox 98% on R/A; Pain 10/10; ss 01:15 BP 139 / 88; Pulse 67; Resp 16; Pulse Ox 100% on R/A; vc 02:00 BP 122 / 85; Pulse 65; Resp 16; Pulse Ox 100% on R/A; vc MDM: 00:34 Patient medically screened. rn 02:11 ED course: + nonobstructing renal stone on CT as well as unchange right ovarian cyst, rn UA neg for continued UTI, will dc home with [employer] f/u for ovarian cyst and return precautions. Has pcp f/u this next week. . 02:22 Data reviewed: vital signs, nurses notes, lab test result(s), radiologic studies, CT rn scan, and as a result, I will discharge patient. Counseling: I had a detailed discussion with the patient and/or guardian regarding: the historical points, exam findings, and any diagnostic results supporting the discharge/admit diagnosis, lab results, radiology results, the need for outpatient follow up, to return to the emergency department if symptoms worsen or persist or if there are any questions or concerns that arise at home. Special discussion: I discussed with the patient/guardian in detail that at this point there is no indication for admission to the hospital. It is understood, however, that if the symptoms persist or worsen the patient needs to return immediately for re-evaluation. Based on the history and exam findings, there is no indication for further emergent testing or inpatient evaluation. I discussed with the patient/guardian the need to see the OB Gyne specialist for further evaluation of the symptoms. I discussed with the patient/guardian the need to see the primary care provider for further evaluation of the symptoms. 09/06 00:39 Order name: Basic Metabolic Panel rn 09/06 00:39 Order name: CBC with Diff rn 09/06 00:39 Order name: Hepatic Function; Complete Time: rn 09/06 00:39 Order name: Lipase; Complete Time: rn 09/06 00:39 Order name: Urine Culture rn 09/06 00:39 Order name: Urine Microscopic Only; Complete Time: 09/06 00:39 Order name: IV Saline Lock; Complete Time: rn 09/06 00:39 Order name: Labs collected and sent; Complete Time: rn 09/06 00:39 Order name: CT Stone Protocol rn 09/06 00:39 Order name: Urine Dipstick-Ancillary (obtain specimen); Complete Time: : rn 09/06 00:40 Order name: Basic Metabolic Panel; Complete Time: EDOH 09/06 00:40 Order name: CBC with Automated Diff; Complete Time: EDOH 09/06 01:12 Order name: Urine Dipstick--Ancillary (enter results) mw2 Administered Medications: No medications were administered Disposition: 09/07/19 02:12 Discharged to Home. Impression: Hematuria, unspecified, Kidney stones, Unspecified ovarian cysts. - Condition is Stable. - Discharge Instructions: Back Pain, Adult, Hematuria, Adult, Ovarian Cyst. - Prescriptions for Cyclobenzaprine 10 mg Oral Tablet - take 1 tablet by ORAL route every 8 hours As needed; 15 tablet. - Medication Reconciliation Form, Thank You Letter, Antibiotic Education, Prescription Opioid Use form. - Follow up: Private Physician; When: As needed; Reason: Recheck today's complaints, Re-evaluation by your physician. - Problem is an ongoing problem. - Symptoms are unchanged. Signatures: Dispatcher [employer] Aj Chaudhry MD MD rn Smirch, Shelby, RN RN ss Maki Albarran RN RN vc Corrections: (The following items were deleted from the chart) 02:26 02:13 09/07/2019 02:12 Discharged to Home. Impression: Hematuria, unspecified; Kidney vc stones; Unspecified ovarian cysts. Condition is Stable. Forms are Medication Reconciliation Form, Thank You Letter, Antibiotic Education, Prescription Opioid Use. Follow up: Private Physician; When: As needed; Reason: Recheck today's complaints, Re-evaluation by your physician. Problem is an ongoing problem. Symptoms are unchanged. rn
--- NOTE | 2019-09-07 02:13 | ER ---
Nurse's Notes [facility] Name: Radha Guzman Age: 59 yrs Sex: Female : 1960 Arrival Date: 09/07/2019 Time: 00:29 Bed 17 Private MD: Diagnosis: Hematuria, unspecified;Kidney stones;Unspecified ovarian cysts Presentation: 09/06 00:42 Chief complaint: Patient states: Seen in ER two weeks ago for low back pain and told ss she has a UTI. Pt reports the medications did not help and she does not feel any better. c/o low back pain, lower abd pain and headache. Coronavirus screen: Proceed with normal triage. Patient denies a cough. Patient denies shortness of breath or difficulty breathing. Patient denies measured and/or subjective temperature greater than 100.4F prior to today's visit. Patient denies travel on a cruise ship or to a country the [facility] currently lists as an affected area. Patient denies contact with known and/or suspected case of COVID-19. Ebola Screen: Patient denies exposure to infectious person. Patient denies travel to an Ebola-affected area in the 21 days before illness onset. Initial Sepsis Screen: Does the patient have a suspected source of infection? No. Patient's initial sepsis screen is negative. Risk Assessment: Do you want to hurt yourself or someone else? Patient reports no desire to harm self or others. Onset of symptoms was August 24, 2019. 00:42 Method Of Arrival: Ambulatory ss 00:42 Acuity: RICKY 3 ss 00:45 Initial Sepsis Screen: Does the patient meet any 2 criteria? No. Patient's initial vc sepsis screen is negative. Triage Assessment: 00:45 General: Appears in no apparent distress. uncomfortable, ill, slender, well groomed, vc Behavior is calm, cooperative, appropriate for age. Pain: Complains of pain in lumbar area, left mid back and right mid back Pain does not radiate. Pain currently is 9 out of 10 on a pain scale. Quality of pain is described as pressure, sharp, stabbing, Pain began a few weeks ago. Musculoskeletal: Circulation, motion, and sensation intact. Range of motion: intact in all extremities. Historical: - Allergies: 00:43 No Known Allergies; ss - PMHx: 00:43 Depression; GERD; Hypothyroidism; ss - PSHx: 00:43 ; ss - Immunization history:: Adult Immunizations up to date. - Social history:: Smoking status: Patient denies any tobacco usage or history of. - Family history:: not pertinent. - Hospitalizations: : No recent hospitalization is reported. Screenin:50 Abuse screen: Denies threats or abuse. Denies injuries from another. Nutritional ss screening: No deficits noted. Tuberculosis screening: Never had TB. Fall Risk None identified. Assessment: 00:45 General: Appears in no apparent distress. uncomfortable, ill, slender, well groomed, vc Behavior is calm, cooperative, appropriate for age, Denies fever. Pain: Complains of pain in right mid back and left mid back and lumbar area. Neuro: Level of Consciousness is awake, alert, obeys commands, Oriented to person, place, time, situation, Appropriate for age. Cardiovascular: Capillary refill < 3 seconds Patient's skin is warm and dry. Respiratory: Airway is patent Respiratory effort is even, unlabored, Respiratory pattern is regular, symmetrical. GI: No signs and/or symptoms were reported involving the gastrointestinal system. : Urine is clear, Reports pain flank(s), in lower back. Derm: Skin is intact, is healthy with good turgor, Skin temperature is warm cool. Musculoskeletal: Circulation, motion, and sensation intact. Range of motion: intact in all extremities. 01:24 Reassessment: Patient appears in no apparent distress at this time. Patient and/or vc family updated on plan of care and expected duration. Pain level reassessed. Patient is alert, oriented x 3, equal unlabored respirations, skin warm/dry/pink. Patient states symptoms have not improved. 01:26 Reassessment: Patient states her back hurts her to much to lean back in bed. vc 02:10 Reassessment: Patient appears in no apparent distress at this time. Patient and/or vc family updated on plan of care and expected duration. Pain level reassessed. Patient is alert, oriented x 3, equal unlabored respirations, skin warm/dry/pink. Patient states symptoms have not improved. Vital Signs: 00:50 BP 134 / 88; Pulse 72; Resp 15; Temp 98.3(TE); Pulse Ox 98% on R/A; Pain 10/10; ss 01:15 BP 139 / 88; Pulse 67; Resp 16; Pulse Ox 100% on R/A; vc 02:00 BP 122 / 85; Pulse 65; Resp 16; Pulse Ox 100% on R/A; vc ED Course: 00:29 Patient arrived in ED. ag3 00:34 Aj Rossi MD is Attending Physician. rn 00:34 Maki Albarran, RN is Primary Nurse. vc 00:43 Triage completed. ss 00:43 Arm band placed on right wrist. ss 00:50 Patient has correct armband on for positive identification. Bed in low position. Call light in reach. 01:00 Inserted saline lock: 20 gauge in left antecubital area, using aseptic technique. Blood vc collected. 01:16 CT Stone Protocol In Process Unspecified. EDMS 02:19 No provider procedures requiring assistance completed. IV discontinued, intact, vc bleeding controlled, No redness/swelling at site. Pressure dressing applied. Administered Medications: No medications were administered Outcome: 02:12 Discharge ordered by . rn 02:19 Discharged to home ambulatory. vc 02:19 Condition: good 02:19 Discharge instructions given to patient, Instructed on discharge instructions, follow up and referral plans. Demonstrated understanding of instructions, follow-up care. 02:21 Instructed on medication usage, Demonstrated understanding of medications, vc Prescriptions given X 1. 02:26 Patient left the ED. vc Signatures: Dispatcher [employer] EDMS Aj Rossi MD MD rn Smirch, Shelby, RN RN ss Gomez, Alice ag3 Maki Albarran, BRAEDEN DERAS vc
[2019-09-07 02:34] VITALS: TEMP 98.3
[2019-09-07 02:35] VITALS: O2SAT 100
[2019-09-07 02:37] VITALS: BP 122/85
[2019-09-07 03:30] LABS: Urine Blood 1+ (NEG); Urine Glucose NEGATIVE (NEG); Urine Specific Gravity 1.025 (1.005-1.030)
[2019-09-07 03:31] LABS: Urine Protein NEGATIVE (NEG)
--- NOTE | 2019-09-07 12:43 | RAD REPORT ---
EXAM DESCRIPTION: CT ABDOMEN PELVIS WITHOUT IV CONTRAST CLINICAL HISTORY: Back pain; Abd pain TECHNIQUE: Contiguous axial images obtained through the abdomen and pelvis without IV contrast. Jody nal and sagittal reformatted images were provided. This exam was performed according to our departmental dose-optimization program, which includes autom ated exposure control, adjustment of the mA and/or kV according to patient size and/or use of iterati ve reconstruction technique. COMPARISON: 02/16/2019 FINDINGS: Lung bases: Clear Liver: The liver is enlarged and diffusely low in density compatible with steatosis. Gallbladder and biliary system: Unremarkable Pancreas: Grossly unremarkable Spleen: Grossly unremarkable Adrenals: Unremarkable Kidneys: Tiny calculus at the upper pole collecting system on the right. No hydronephrosis. Bowel: Moderate stool. Colonic diverticula without adjacent inflammatory change. No obstruction. No a ppreciable mucosal thickening. Appendix: Normal caliber appendix. No findings to suggest acute appendicitis. Urinary bladder: Unremarkable Reproductive: 2 cm right ovarian cyst, similar to the prior. The uterus and left ovary are unremarkab le as visualized. Lymph nodes: No pathologically enlarged lymph nodes. Peritoneum: No focal fluid collection. No free air. Vessels: No abdominal aortic aneurysm. Abdominal wall: Unremarkable Bones: Unremarkable IMPRESSION: 1. Nonobstructive right renal calculus. 2. Stable 2.0 cm probably benign right ovarian cyst. Recommend prompt follow-up with pelvic US. Ref erence: J Am Marko Radiol 2013;[id number] 3. Other findings as above. Electronically signed by: Mark Cristina MD 09/07/2019 1:36 AM CDT Due to temporary technical issues with the PACS/Fluency reporting system, reports are being signed by the in house radiologist without review as a courtesy to ensure prompt reporting. The interpreting r adiologist is fully responsible for the content of the report.
== END 2019-09-07 02:26 | disposition home or self-care (01) ==
LOC: ER 00:26
DX: N20.0 Calculus of kidney (principal); N83.209 Unspecified ovarian cyst, unspecified side
CPT/HCPCS: 36415; 74176; 76377; 80048; 80076; 81003; 81015; 83690; 85025; 87086; 87088; 99284

== ENCOUNTER 2022-07-27 18:38 | Emergency (ER) | payer OTHER ==
--- OUTSIDE RECORDS SUMMARY | 2022-07-27 18:42 | XMS REPORT | Continuity of Care Document ---
:1960 Author Organization [facility] t Address [address] [address] Care Team Providers Name Role Phone Constantino Attending Clinician Unavailable Constantino Admitting Clinician Unavailable Problems This patient has no known problems. Allergies, Adverse Reactions, Alerts This patient has no known allergies or adverse reactions. Medications This patient has no known medications. Procedures This patient has no known procedures. Encounters Start End Encounter Admission Attending Care Care Encounter Source Date/Time Date/Time Type Type Clinicians Facility Department ID 2021-04-04 2021-04-04 Outpatient [facility] [phone] [facility] 04:23:00 04:23:00 [facility] Results This patient has no known results.
[2022-07-27] MEDS ORDERED: PANTOPRAZOLE 40 MG INJ ONE (19:56)
[2022-07-27] MEDS ORDERED: ONDANSETRON 4 MG/2 ML VIAL ONE (19:56)
[2022-07-27] MEDS ORDERED: MORPHINE 4 MG/ML SYR ONE (19:56)
[2022-07-27 20:09] LABS: Protime INR 1.09
[2022-07-27 20:26] LABS: Albumin 4.1 g/dL (3.4-5.0); Bilirubin Direct 0.1 mg/dL (0-0.2); Bilirubin Indirect, Calculated 0.4 mg/dL (0.2-0.8); Bilirubin Total 0.5 mg/dL (0.2-1.0); Magnesium 2.1 mg/dL (1.6-2.4); Potassium 4.1 mEq/L (3.5-5.1); Troponin High Sensitivity 4.3 pg/mL (<58.9)
[2022-07-27 20:36] LABS: Hematocrit 40.3 % (36.0-45.0); MCV 93.5 fL (80-100); MPV 7.9 fL (7.6-11.3); RBC Red Blood Cell Count 4.31 M/uL (3.86-4.86)
--- NOTE | 2022-07-27 21:22 | RAD REPORT ---
EXAM DESCRIPTION: Joeyt Single View07/27/2022 8:01 pm CLINICAL HISTORY: upper abdomen pain COMPARISON: Chest Single View dated 08/24/2019; ABDOMEN 1 VIEW KUB dated 08/19/2007; CHEST PA AND LAT 2 VIEW dated 08/19/2007; ABDOMEN ACUTE SERIES dated 06/06/2007 TECHNIQUE: Portable AP view of the chest. FINDINGS: The lungs are clear. No pneumothorax or effusion. The cardiomediastinal contours are unre markable. IMPRESSION: No acute cardiopulmonary process.
--- NOTE | 2022-07-27 23:02 | RAD REPORT ---
EXAM DESCRIPTION: CT - Abdomen Pelvis W Contrast - 07/27/2022 10:25 pm CLINICAL HISTORY: upper abdomen pain, blood in stool COMPARISON: Abdomen Exam Complete dated 02/19/2022; Stone Protocol dated 09/07/2019 TECHNIQUE: Thin cut axial CT imaging of the abdomen and pelvis was performed following intravenous a dministration of 95 mL Isovue 300. Multiplanar reformats were generated and reviewed. All CT scans are performed using dose optimization technique as appropriate and may include automated exposure control or mA/KV adjustment according to patient size. FINDINGS: No suspicious findings in the lung bases. The liver demonstrates stable hepatic dome subcapsular 2.4 centimeter hypoattenuating lesion suggesti ve of a cyst and other subcentimeter hypoattenuating lesions not well characterized. Spleen, adrenal glands, and pancreas show no suspicious findings. Gallbladder and biliary tree are also without suspi cious finding. Left renal interpolar 2.5 centimeter fluid density cystic lesion. Symmetric renal function otherwise, with no hydronephrosis or suspicious renal mass. No dilated bowel loops or bowel wall thickening. No free air, free fluid or inflammatory stranding. N o hernia, mass or bulky lymphadenopathy. The urinary bladder is without significant finding. No suspicious bony findings. IMPRESSION: No acute intra-abdominal process. Stable incidental findings as above.
--- NOTE | 2022-07-28 00:11 | ER ---
Nurse's Notes [facility] Name: Radha Guzman Age: 62 yrs Sex: Female : 1960 Arrival Date: 07/27/2022 Time: 18:38 Bed 18 Private MD: Diagnosis: Nausea with vomiting, unspecified;Diarrhea, unspecified Presentation: 07/27 18:51 Chief complaint: Patient states: NAUSEA/VOMITING/DIARRHEA AFTER BREAKFAST AT 1100. bp Coronavirus screen: At this time, the client does not indicate any symptoms associated with coronavirus-19. Ebola Screen: No symptoms or risks identified at this time. Initial Sepsis Screen: Does the patient meet any 2 criteria? No. Patient's initial sepsis screen is negative. Does the patient have a suspected source of infection? No. Patient's initial sepsis screen is negative. Risk Assessment: Do you want to hurt yourself or someone else? Patient reports no desire to harm self or others. Onset of symptoms was July 27, 2022 at 11:00. 18:51 Method Of Arrival: Ambulatory bp 18:51 Acuity: RICKY 3 bp Historical: - Allergies: 18:52 No Known Allergies; bp - PMHx: 18:52 Depression; GERD; Hypothyroidism; bp - Immunization history:: Adult Immunizations up to date. - Social history:: Smoking status: Patient denies any tobacco usage or history of. Screenin:16 Abuse screen: Denies threats or abuse. Denies injuries from another. Nutritional aa9 screening: Has had N/V for 3 or more days. Tuberculosis screening: No symptoms or risk factors identified. 07/28 00:19 [facility] ED Fall Risk Assessment (Adult) History of falling in the last 3 months, aa9 including since admission No falls in past 3 months (0 pts) Confusion or Disorientation No (0 pts) Intoxicated or Sedated No (0 pts) Impaired Gait No (0 pts) Mobility Assist Device Used No (0 pt) Altered Elimination No (0 pt) Score/Fall Risk Level 0 - 2 = Low Risk Oriented to surroundings, Maintained a safe environment, Educated pt \T\ family on fall prevention, incl call for assistance when getting out of bed. Assessment: 07/27 20:01 General: Appears uncomfortable, slender, Behavior is cooperative, crying. Pain: aa9 Complains of pain in abdomen Pain currently is 7 out of 10 on a pain scale. Neuro: Level of Consciousness is awake, alert, obeys commands, Oriented to person, place, time, situation. Respiratory: Airway is patent Respiratory effort is even, unlabored. GI: Abdomen is flat, Reports diarrhea, nausea, vomiting. 20:11 Reassessment: Patient appears in no apparent distress at this time. notified CT of oral aa9 contrast completion. 23:28 Reassessment: Patient appears in no apparent distress at this time. chaperoned Therese clinton with rectal exam. 07/28 00:19 Reassessment: Patient appears in no apparent distress at this time. Patient and/or aa9 family updated on plan of care and expected duration. Pain level reassessed. Patient is alert, oriented x 3, equal unlabored respirations, skin warm/dry/pink. Patient states feeling better. Patient states symptoms have improved. Vital Signs: 07/27 18:51 BP 142 / 89; Pulse 82; Resp 16; Temp 98; Pulse Ox 100% ; bp 20:01 BP 140 / 90; Pulse 88; Resp 17 S; Pulse Ox 100% on R/A; aa9 20:42 BP 124 / 69; Pulse 70; Resp 18 S; Pulse Ox 94% ; aa9 22:00 BP 114 / 68; Pulse 78; Resp 18; Pulse Ox 98% on R/A; aa9 07/28 00:14 BP 118 / 72; Pulse 72; Resp 17; Temp 98.2; Pulse Ox 99% on R/A; aa9 ED Course: 07/27 18:45 Patient arrived in ED. ts1 18:52 Triage completed. bp 18:52 Arm band placed on. bp 19:04 Jhoan Saleh PA is PHCP. cp 19:04 Murray Piña MD is Attending Physician. cp 19:27 Teresa Portillo, BRAEDEN is Primary Nurse. aa9 19:58 Inserted saline lock: 20 gauge in right antecubital area, using aseptic technique. aa9 Blood collected. 20:00 Patient has correct armband on for positive identification. Placed in gown. Bed in low aa9 position. Call light in reach. Side rails up X2. 20:00 Basic Metabolic Panel Sent. aa9 20:00 CBC with Diff Sent. aa9 20:00 LFT's Sent. aa9 20:00 Magnesium Sent. aa9 20:00 PT-INR Sent. aa9 20:00 Troponin HS Sent. aa9 20:01 Lipase Sent. aa9 20:03 XRAY Chest (1 view) In Process Unspecified. EDMS 22:28 Abdomen In Process Unspecified. EDMS 07/28 00:10 Anderson Hernandez MD is Referral Physician. cp 00:18 No provider procedures requiring assistance completed. IV discontinued, intact, aa9 bleeding controlled, No redness/swelling at site. Pressure dressing applied. Administered Medications: 07/27 20:00 Drug: Pantoprazole IVP 40 mg Route: IVP; Site: right antecubital; aa9 07/28 00:14 Follow up: Response: No adverse reaction aa9 07/27 20:00 Drug: morphine IVP or IV 4 mg Route: IVP; Infused Over: 4 mins; Site: right antecubital;aa9 07/28 00:14 Follow up: Response: No adverse reaction aa9 07/27 20: Drug: Ondansetron IVP 4 mg Route: IVP; Site: right antecubital; aa9 07/28 00:14 Follow up: Response: No adverse reaction aa9 Medication: 00:19 VIS not applicable for this client. aa9 Outcome: 00:10 Discharge ordered by . cp 00:18 Discharged to home ambulatory, with significant other. aa9 00:18 Condition: stable 00:18 Discharge instructions given to patient, Instructed on discharge instructions, follow up and referral plans. medication usage, Demonstrated understanding of instructions, follow-up care, medications, Prescriptions given X 2. 00:19 Patient left the ED. aa9 Signatures: Dispatcher [employer] EDPR Jhoan Saleh PA PA cp Vitaly Alas, RN RN bp Teresa Portillo, RN RN aa9 Maren Pierce, JED PAS ts1
--- NOTE | 2022-07-28 00:11 | EDPHYS ---
Physician Documentation [facility] Name: Radha Guzman Age: 62 yrs Sex: Female : 1960 Arrival Date: 07/27/2022 Time: 18:38 Bed 18 Private MD: ED Physician Murray Piña HPI: 07/27 19:30 This 62 yrs old Female presents to ER via Ambulatory with complaints of cp Nausea/Vomiting. 19:30 The patient presents to the emergency department with nausea, that is moderate, cp vomiting, that is intermittent, diarrhea, that is intermittent, abdominal pain, of the right upper quadrant and left upper quadrant, described as sharp, waxing and waning. Onset: The symptoms/episode began/occurred this morning. Possible causes: unknown. Associated signs and symptoms: Pertinent negatives: constipation, dysuria, fever, hematemesis. Severity of symptoms: in the emergency department the symptoms are unchanged despite home interventions. 19:30 Patient reports noticing some red colored blood in diarrhea today. cp Historical: - Allergies: 18:52 No Known Allergies; bp - PMHx: 18:52 Depression; GERD; Hypothyroidism; bp - Immunization history:: Adult Immunizations up to date. - Social history:: Smoking status: Patient denies any tobacco usage or history of. ROS: 19:35 Constitutional: Negative for body aches, chills, fever, poor PO intake. cp 19:35 Eyes: Negative for injury, pain, redness, and discharge. cp 19:35 ENT: Negative for drainage from ear(s), ear pain, sore throat, difficulty swallowing, difficulty handling secretions. 19:35 Cardiovascular: Negative for chest pain, edema, palpitations. 19:35 Respiratory: Negative for cough, shortness of breath, wheezing. 19:35 Abdomen/GI: Positive for abdominal pain, nausea, vomiting, and diarrhea, rectal bleeding, Negative for constipation. 19:35 Back: Negative for radiated pain. 19:35 : Negative for urinary symptoms. 19:35 Neuro: Negative for altered mental status, dizziness, headache, numbness, weakness. 19:35 All other systems are negative. Exam: 19:40 Constitutional: The patient appears in no acute distress, alert, awake, cp non-diaphoretic, non-toxic, well developed, well nourished, uncomfortable. 19:40 Head/Face: Normocephalic, atraumatic. cp 19:40 Eyes: Periorbital structures: appear normal, Conjunctiva: normal, no exudate, no injection, Sclera: no appreciated abnormality, Lids and lashes: appear normal, bilaterally. 19:40 ENT: External ear(s): are unremarkable, Nose: is normal, Mouth: Lips: moist, Oral mucosa: pink and intact, moist, Posterior pharynx: is normal, airway is patent, no erythema, no exudate. 19:40 Neck: ROM/movement: is normal, is supple, without pain, no range of motions limitations. 19:40 Chest/axilla: Inspection: normal. 19:40 Cardiovascular: Rate: normal, Rhythm: regular, Edema: is not appreciated, JVD: is not appreciated. 19:40 Respiratory: the patient does not display signs of respiratory distress, Respirations: normal, no use of accessory muscles, no retractions, labored breathing, is not present, Breath sounds: are clear throughout, no decreased breath sounds, no stridor, no wheezing. 19:40 Abdomen/GI: Inspection: abdomen appears normal, Bowel sounds: active, all quadrants, Palpation: soft, in all quadrants, moderate abdominal tenderness, in the epigastric area, right upper quadrant and left upper quadrant, rebound tenderness, is not appreciated, involuntary guarding, is not appreciated. 19:40 Back: pain, is absent, ROM is normal. 19:40 Skin: cellulitis, is not appreciated, no rash present. 19:40 Neuro: Orientation: to person, place \T\ time. Mentation: is normal, Motor: moves all fours, strength is normal, Sensation: is normal. 20:18 ECG was reviewed by the Attending Physician. cp 23:45 Abdomen/GI: Rectal exam: rectal tone normal, Stool: brown, hemorrhoid(s), are not cp appreciated. Vital Signs: 18:51 BP 142 / 89; Pulse 82; Resp 16; Temp 98; Pulse Ox 100% ; bp 20:01 BP 140 / 90; Pulse 88; Resp 17 S; Pulse Ox 100% on R/A; aa9 20:42 BP 124 / 69; Pulse 70; Resp 18 S; Pulse Ox 94% ; aa9 22:00 BP 114 / 68; Pulse 78; Resp 18; Pulse Ox 98% on R/A; aa9 07/28 00:14 BP 118 / 72; Pulse 72; Resp 17; Temp 98.2; Pulse Ox 99% on R/A; aa9 MDM: 07/27 18:53 Patient medically screened. bs3 20:00 Differential diagnosis: gastritis, viral gastroenteritis, gastroenteritis, colitis, cp diverticulitis, sepsis, anemia. 07/28 00:10 Data reviewed: vital signs, nurses notes, lab test result(s), radiologic studies, CT cp scan. 00:10 Consideration of Admission/Observation Escalation of care including cp admission/observation considered. I considered the following discharge prescriptions or medication management in the emergency department Medications were administered in the Emergency Department. See MAR. Counseling: I had a detailed discussion with the patient and/or guardian regarding: the historical points, exam findings, and any diagnostic results supporting the discharge/admit diagnosis, lab results, radiology results, the need for outpatient follow up, a solar engineer. Response to treatment: the patient's symptoms have markedly improved after treatment, and as a result, I will discharge patient. Special discussion: Based on the patient's Hx, exam, and Dx evaluation, there is no indication for emergent surgery or inpatient Tx. It is understood by the patient/guardian that if the Sx's persist or worsen they need to return immediately for re-evaluation. 07/27 19:20 Order name: Basic Metabolic Panel; Complete Time: 20:53 cp 07/27 20:53 Interpretation: Normal except: GLUC 113; GFR 80. cp 07/27 19:20 Order name: CBC with Diff; Complete Time: 20:53 cp 07/27 20:53 Interpretation: Normal except: CHRISTIANO% 84.7; LYM% 10.0; NEUT A 8.1. cp 07/27 19:20 Order name: LFT's; Complete Time: 20:53 cp 07/27 20:53 Interpretation: Normal except: GLOB 3.9. cp 07/27 19:20 Order name: Magnesium; Complete Time: 20:53 cp 07/27 19:20 Order name: PT-INR; Complete Time: 20:53 cp 07/27 19:20 Order name: Troponin HS; Complete Time: 20:53 cp 07/27 19:20 Order name: Lipase; Complete Time: 20:53 cp 07/27 19:20 Order name: XRAY Chest (1 view); Complete Time: 23:10 07/27 23:10 Interpretation: Report review. 07/27 20:25 Order name: Abdomen ; Complete Time: 23:10 EDMS 07/27 19:20 Order name: EKG; Complete Time: 19:21 07/27 19:20 Order name: Cardiac monitoring; Complete Time: 20:00 07/27 19:20 Order name: EKG - Nurse/Tech; Complete Time: 20:17 07/27 19:20 Order name: IV Saline Lock; Complete Time: 20:00 07/27 19:20 Order name: Labs collected and sent; Complete Time: 20:00 07/27 19:20 Order name: O2 Per Protocol; Complete Time: 20:00 07/27 19:20 Order name: O2 Sat Monitoring; Complete Time: 20:00 07/28 00:10 Order name: PO challenge; Complete Time: 00:14 cp EC/26 20:18 Rate is 80 beats/min. Rhythm is regular. MI interval is normal. QRS interval is normal. cp QT interval is normal. T waves are Inverted in lead aVR. Interpreted by me. Reviewed by me. Administered Medications: 20:00 Drug: Pantoprazole IVP 40 mg Route: IVP; Site: right antecubital; [facility] 07/28 00:14 Follow up: Response: No adverse reaction [facility] 07/27 20:00 Drug: morphine IVP or IV 4 mg Route: IVP; Infused Over: 4 mins; Site: right antecubital;9 07/28 00:14 Follow up: Response: No adverse reaction [facility] 07/27 20:01 Drug: Ondansetron IVP 4 mg Route: IVP; Site: right antecubital; 9 07/28 00:14 Follow up: Response: No adverse reaction [facility] Disposition Summary: 07/28/22 00:10 Discharge Ordered Location: Home cp Problem: new cp Symptoms: have improved cp Condition: Stable cp Diagnosis - Nausea with vomiting, unspecified cp - Diarrhea, unspecified cp Followup: cp - With: Anderson Hernandez MD - When: 2 - 3 days - Reason: Recheck today's complaints Discharge Instructions: - Discharge Summary Sheet cp - Diarrhea, Adult cp - Nausea and Vomiting, Adult cp Forms: - Medication Reconciliation Form cp - Thank You Letter cp - Antibiotic Education cp - Prescription Opioid Use cp Prescriptions: - Zofran 4 mg Oral Tablet - take 1 tablet by ORAL route every 12 hours As needed; 20 tablet; Refills: 0, cp Product Selection Permitted - dicyclomine 20 mg Oral Tablet - take 1 tablet by ORAL route 4 times per day; 30 tablet; Refills: 0, Product cp Selection Permitted Signatures: Dispatcher [employer] EDMS Jhoan Saleh PA PA cp Peltier, Brian RN RN bp Teresa Portillo RN RN aa9 Murray Piña MD MD bs3 Corrections: (The following items were deleted from the chart) 07/27 20:25 19:22 Abdomen W/ Con+CT.[email or web address].[email or web address] ordered. EDKY EDMS
[2022-07-28 00:48] VITALS: BP 118/72; TEMP 98.2; O2SAT 99
--- NOTE | 2022-07-29 07:29 | EKG ---
Test Date: 2022-07-27 Test Time: 20:12:27 Technical Services Rep: RAMONA MEASUREMENT RESULTS: Intervals: Rate: 80 MD: 152 QRSD: 92 QT: 398 QTc: 459 [place]: P: 26 MD: 152 QRS: -25 T: 34 INTERPRETIVE STATEMENTS: Normal sinus rhythm Normal ECG Compared to ECG 11/02/2004 17:03:00 No significant changes Electronically Signed On 07-29-22 07:25:35 CDT by Eddy Reyes
== END 2022-07-28 00:19 | disposition home or self-care (01) ==
LOC: ER 18:38
DX: R11.2 Nausea with vomiting, unspecified (principal); R19.7 Diarrhea, unspecified
CPT/HCPCS: 93005; 85025; 80048; 36415; 83735; 85610; 80076; 84484; 83690; 74177; 71045; 96375; 96374; 99284; Q9967; C9113; J2405

== ENCOUNTER → 2023-02-27 | Emergency (ER) | payer OTHER ==
[~2023-02-27] MED LIST: ACETAMINOPHEN 500 MG TAB ONE; ASPIRIN 81 MG CHEWABLE TABLET ONE; AZITHROMYCIN 250 MG TAB ONE; FAMOTIDINE 20 MG TAB ONE; IBUPROFEN 200 MG TAB PO ONE
--- NOTE | 2023-02-27 23:38 | ER ---
Nurse's Notes [facility] Name: Radha Guzman Age: 62 yrs Sex: Female : 1960 Arrival Date: 02/27/2023 Time: 22:22 Bed 20 Private MD: Diagnosis: Fever, unspecified;Acute upper respiratory infection, unspecified;SARS-associated coronavirus as the cause of diseases classified elsewhere Presentation: 02/27 22:41 Chief complaint: Patient states: Pt c/o fever, runny nose, and body aches since tl4 yesterday. Pt states she had a positive home covid test. No relief with OTC meds this morning. Coronavirus screen: Vaccine status: Patient reports receiving the 2nd dose of the covid vaccine. chills, congestion, fever, headache, muscle pain, runny nose. Ebola Screen: Patient negative for fever greater than or equal to 101.5 degrees Fahrenheit, and additional compatible Ebola Virus Disease symptoms Patient denies exposure to infectious person. Patient denies travel to an Ebola-affected area in the 21 days before illness onset. No symptoms or risks identified at this time. Initial Sepsis Screen: Does the patient meet any 2 criteria? No. Patient's initial sepsis screen is negative. Does the patient have a suspected source of infection? No. Patient's initial sepsis screen is negative. Risk Assessment: Do you want to hurt yourself or someone else? Patient reports no desire to harm self or others. Onset of symptoms was February 26, 2023. 22:41 Method Of Arrival: Ambulatory tl4 22:41 Acuity: RICKY 3 tl4 Triage Assessment: 22:46 General: Appears ill, Behavior is calm, cooperative. Pain: Complains of pain in tl4 generalized body aches. Respiratory: Breath sounds are clear bilaterally. Historical: - Allergies: 22:44 No Known Allergies; tl4 - Home Meds: 22:44 Klonopin Oral [Active]; levothyroxine oral [Active]; pantoprazole oral [Active]; tl4 fluoxetine 20 mg Oral tablet [Active]; Zyrtec 10 mg Oral tablet [Active]; - PMHx: 22:44 Depression; GERD; Hypothyroidism; tl4 - Immunization history:: Adult Immunizations unknown. - Social history:: Smoking status: Patient denies any tobacco usage or history of. Screenin:48 [facility] ED Fall Risk Assessment (Adult) History of falling in the last 3 months, tl4 including since admission No falls in past 3 months (0 pts) Confusion or Disorientation No (0 pts) Intoxicated or Sedated No (0 pts) Impaired Gait No (0 pts) Mobility Assist Device Used No (0 pt) Altered Elimination No (0 pt) Score/Fall Risk Level 0 - 2 = Low Risk. Abuse screen: Denies threats or abuse. Denies injuries from another. Nutritional screening: No deficits noted. Tuberculosis screening: No symptoms or risk factors identified. Assessment: 22:47 Reassessment: No changes from previously documented assessment. Cardiovascular: tl4 Capillary refill < 3 seconds. Respiratory: Airway is patent Respiratory effort is even, unlabored. Vital Signs: 22:41 BP 114 / 69; Pulse 92; Resp 16; Temp 99.8(O); Pulse Ox 97% on R/A; Pain 8/10; tl4 22:41 Pain Scale: Adult tl4 Bin Coma Score: 23:36 Eye Response: spontaneous(4). Motor Response: obeys commands(6). Verbal Response: yao oriented(5). Total: 15. ED Course: 22:25 Patient arrived in ED. mr 22:44 Triage completed. tl4 22:47 Arm band placed on Patient placed in an exam room, on a stretcher. tl4 22:48 Patient has correct armband on for positive identification. Provided Education on: ED tl4 process. 22:48 No provider procedures requiring assistance completed. tl4 23:06 Jhoan Vigil MD is Attending Physician. yao 23:55 Maki Albarran RN is Primary Nurse. vc1 23:56 Patient did not have IV access during this emergency room visit. vc1 Administered Medications: 23:30 Drug: Ibuprofen PO 600 mg PO once Route: PO; vc1 23:30 Drug: AZITHromycin PO 500 mg PO once Route: PO; vc1 23:30 Drug: Famotidine PO 40 mg PO once Route: PO; vc1 23:30 Drug: Aspirin PO Chewable Tablet 81 mg PO once Route: PO; vc1 23:31 Drug: Acetaminophen PO 1000 mg PO once Route: PO; vc1 Medication: 22:48 VIS not applicable for this client. tl4 Outcome: 23:38 Discharge ordered by . yao 23:56 Discharged to home ambulatory, with significant other, vc1 23:56 Condition: good 23:56 Discharge instructions given to patient, Instructed on discharge instructions, follow up and referral plans. medication usage, Demonstrated understanding of instructions, follow-up care, medications, Prescriptions given X 5 23:56 Patient left the ED. vc1 Signatures: Jhoan Vigil MD MD cha Rivera, Graciela, Reg Reg Maki Nguyen RN RN vc1 Davide Reich 4
--- NOTE | 2023-02-27 23:38 | EDPHYS ---
Physician Documentation [facility] Name: Radha Guzman Age: 62 yrs Sex: Female : 1960 Arrival Date: 02/27/2023 Time: 22:22 Bed 20 Private MD: ED Physician Jhoan Vigil HPI: 02/27 23:24 This 62 yrs old Female presents to ER via Ambulatory with complaints of yao Congestion, Headache, Fever. 23:24 The patient complains of pain to the forehead. The patient describes the headache as yao aching. Onset: The symptoms/episode began/occurred 2 day(s) ago. The symptoms are alleviated by nothing. the symptoms are aggravated by nothing. Historical: - Allergies: 22:44 No Known Allergies; tl4 - Home Meds: 22:44 Klonopin Oral [Active]; levothyroxine oral [Active]; pantoprazole oral [Active]; tl4 fluoxetine 20 mg Oral tablet [Active]; Zyrtec 10 mg Oral tablet [Active]; - PMHx: 22:44 Depression; GERD; Hypothyroidism; tl4 - Immunization history:: Adult Immunizations unknown. - Social history:: Smoking status: Patient denies any tobacco usage or history of. ROS: 23:24 Eyes: Negative for injury, pain, redness, and discharge, ENT: Negative for injury, yao pain, and discharge, Neck: Negative for injury, pain, and swelling, Cardiovascular: Negative for chest pain, palpitations, and edema, Abdomen/GI: Negative for abdominal pain, nausea, vomiting, diarrhea, and constipation, Back: Negative for injury and pain, : Negative for injury, bleeding, discharge, and swelling, MS/Extremity: Negative for injury and deformity, Skin: Negative for injury, rash, and discoloration, Neuro: Negative for headache, weakness, numbness, tingling, and seizure, Psych: Negative for depression, anxiety, suicide ideation, homicidal ideation, and hallucinations, Allergy/Immunology: Negative for hives, rash, and allergies, Endocrine: Negative for neck swelling, polydipsia, polyuria, polyphagia, and marked weight changes, Hematologic/Lymphatic: Negative for swollen nodes, abnormal bleeding, and unusual bruising, 23:24 Constitutional: Positive for fever, 23:24 Eyes: Positive for 23:24 Respiratory: Positive for cough, with no reported sputum, Exam: 23:24 Head/Face: Normocephalic, atraumatic. Eyes: Pupils equal round and reactive to light, yao extra-ocular motions intact. Lids and lashes normal. Conjunctiva and sclera are non-icteric and not injected. Cornea within normal limits. Periorbital areas with no swelling, redness, or edema. ENT: Nares patent. No nasal discharge, no septal abnormalities noted. Tympanic membranes are normal and external auditory canals are clear. Oropharynx with no redness, swelling, or masses, exudates, or evidence of obstruction, uvula midline. Mucous membranes moist. Neck: Trachea midline, no thyromegaly or masses palpated, and no cervical lymphadenopathy. Supple, full range of motion without nuchal rigidity, or vertebral point tenderness. No Meningismus. Chest/axilla: Normal chest wall appearance and motion. Nontender with no deformity. No lesions are appreciated. Cardiovascular: Regular rate and rhythm with a normal S1 and S2. No gallops, murmurs, or rubs. Normal PMI, no JVD. No pulse deficits. Respiratory: Lungs have equal breath sounds bilaterally, clear to auscultation and percussion. No rales, rhonchi or wheezes noted. No increased work of breathing, no retractions or nasal flaring. Abdomen/GI: Soft, non-tender, with normal bowel sounds. No distension or tympany. No guarding or rebound. No evidence of tenderness throughout. Back: No spinal tenderness. No costovertebral tenderness. Full range of motion. Skin: Warm, dry with normal turgor. Normal color with no rashes, no lesions, and no evidence of cellulitis. MS/ Extremity: Pulses equal, no cyanosis. Neurovascular intact. Full, normal range of motion. Neuro: Awake and alert, GCS 15, oriented to person, place, time, and situation. Cranial nerves II-XII grossly intact. Motor strength 5/5 in all extremities. Sensory grossly intact. Cerebellar exam normal. Normal gait. Psych: Awake, alert, with orientation to person, place and time. Behavior, mood, and affect are within normal limits. 23:24 Cardiovascular: Rate: normal, Rhythm: regular, Pulses: no pulse deficits are appreciated, Heart sounds: normal, JVD: is not appreciated, Vital Signs: 22:41 BP 114 / 69; Pulse 92; Resp 16; Temp 99.8(O); Pulse Ox 97% on R/A; Pain 8/10; tl4 22:41 Pain Scale: Adult tl4 Bin Coma Score: 23:36 Eye Response: spontaneous(4). Motor Response: obeys commands(6). Verbal Response: yao oriented(5). Total: 15. MDM: 23:06 Patient medically screened. yao 23:36 Antibiotic administration: The patient is discharged and will get outpatient [facility] antibiotics, Zithromax. Differential diagnosis: obstructed airway, tracheal injury, bronchitis, flu, URI, cluster headache, URI, bronchitis, pneumonia meningitis. Data reviewed: vital signs, nurses notes. Consideration of Admission/Observation Escalation of care including admission/observation considered. I considered the following discharge prescriptions or medication management in the emergency department Medications were administered in the Emergency Department. See MAR. Administered Medications: 23:30 Drug: Ibuprofen PO 600 mg PO once Route: PO; vc1 23:30 Drug: AZITHromycin PO 500 mg PO once Route: PO; vc1 23:30 Drug: Famotidine PO 40 mg PO once Route: PO; vc1 23:30 Drug: Aspirin PO Chewable Tablet 81 mg PO once Route: PO; vc1 23:31 Drug: Acetaminophen PO 1000 mg PO once Route: PO; vc1 Disposition Summary: 02/27/23 23:38 Discharge Ordered Notes: Location: Home [facility] Problem: new [facility] Symptoms: have improved yao Condition: Stable yao Diagnosis - Fever, unspecified yao - Acute upper respiratory infection, unspecified yao - SARS-associated coronavirus as the cause of diseases classified elsewhere yao Followup: yao - With: Private Physician - When: 2 - 3 days - Reason: Recheck today's complaints, Continuance of care, Re-evaluation by your physician Discharge Instructions: - Discharge Summary Sheet yao - Fever, Adult yao - Cool Mist Vaporizer yao - Cough, Adult, [id number] yao - Viral Respiratory Infection, [id number] yao - Aspirin and Your Heart yao - Cough, Adult yao - Rehydration, Adult yao - COVID-19 yao - 10 Things You Can Do to Manage Your COVID-19 Symptoms at Home - [facility] (09/16/2020) yao - Viral Illness, Adult [facility] Forms: - Medication Reconciliation Form yao - Thank You Letter yao - Antibiotic Education yao - Prescription Opioid Use yao - Patient Portal Instructions yao - Leadership Thank You Letter [facility] Prescriptions: - Paxlovid 300 mg (150 mg x 2)-100 mg Oral Tablet, Dose Pack - take 1 dose pack ORAL route as directed on dose pack take TWO 150 mg tablets of yao nirmatrelvir with ONE 100 mg tablet of ritonavir twice daily for 5 days; 30 tablet; Refills: 0, Product Selection Permitted - budesonide-formoterol 160-4.5 mcg/actuation Inhalation HFA Aerosol Inhaler - inhale 2 inhalation INHALATION route 2 times per day; 1 unit; Refills: 0, [facility] Product Selection Permitted - Pepcid 20 mg Oral tablet - take 1 tablet ORAL route every 12 hours for 21 days; 42 tablet; Refills: 0, [facility] Product Selection Permitted - Tessalon Perles 100 mg Oral capsule - take 2 capsule ORAL route every 8 hours As needed; 30 capsule; Refills: 0, [facility] Product Selection Permitted - Zithromax 500 mg Oral Tablet - take 1 tablet ORAL route once daily for 5 days; 5 tablet; Refills: 0, Product [facility] Selection Permitted Signatures: Jhoan Vigil MD MD cha Calcote, Vanessa RN RN vc1 Damir, Davide 4
[2023-02-28 05:02] VITALS: BP 114/69; TEMP 99.8; O2SAT 97
== END ==
LOC: ER 22:22
DX: U07.1 COVID-19 (principal); J06.9 Acute upper respiratory infection, unspecified
CPT/HCPCS: 99283